=== PATIENT | male | born 1980 | race Hispanic/Latino ===

== ENCOUNTER 2025-01-31 12:02 | Emergency (ER) | payer BC ==
[~2025-01-31] VITALS: Ht 175.3 cm; Wt 82.8 kg
--- NOTE | 2025-01-31 12:17 | EKG ---
[facility] Test Date: 2025-01-31 Test Time: 12:11:52 Pat Name: AUGIE GONZALEZ Department: [facility] Room: Gender: M Verifying Specialist: [id number] : 1980 Requested By: CARRI PINEDO Order Number: [id number] Reading MD: Andi Kruse Measurements Intervals [place] Rate: 82 P: 56 UT: 142 QRS: 40 QRSD: 101 T: -10 QT: 349 QTc: 407 Interpretive Statements Sinus rhythm Probable left ventricular hypertrophy ST elev, probable normal early repol pattern No previous ECG available for comparison Electronically Signed On 01-31-2025 14:44:11 CDT by Andi Kruse Please click the below link to view image of tracing.
[2025-01-31 12:39] LABS: IMMATURE GRANULOCYTE ABSOLUTE 0.07 K/uL (0-1); NUCLEATED RED BLOOD CELLS 0.0 % (0.0-0.19); PLATELET COUNT (AUTO) 331 K/uL (130-400); RED BLOOD CELL COUNT(AUTO) 4.93 MIL/uL (4.50-6.20); RED CELL DISTRIBUTION WIDTH 11.8 % (11.0-15.5); WHITE BLOOD COUNT (AUTO) 6.8 K/uL (4.8-10.8)
[2025-01-31 13:20] LABS: ASPARTATE AMINOTRANSFERASE 46.0 U/L (10-37); CREATINE KINASE, TOTAL 147.0 U/L (21-232); CREATININE 0.9 mg/dL (0.5-1.3); GLOMERULAR FILTR. RATE CALC 109.0 mL/min (>90); GLUCOSE,RANDOM 102.0 mg/dL (70-105); SODIUM SERUM 134.0 mmol/L (136-145); TOTAL PROTEIN, SERUM 8.3 g/dL (6.0-8.3); UREA NITROGEN, BLOOD 8.0 mg/dL (7-18)
--- NOTE | 2025-01-31 13:22 | ERN ---
General Chief Complaint: Abdominal Pain Stated Complaint: ABD PAIN Time Seen by MD: 12:03 Source: patient History of Present Illness Initial Comments IN HIS IS A 44-YEAR-OLD MALE COMING IN COMPLAINING OF ABDOMINAL PAIN. PER PATIENT THE PAIN BEGAN YESTERDAY THIS IS A STATES THAT HE HAS BEEN HAVING THIS PAIN IN THE PAST. HE LOCALIZES THE PAIN TO THE EPIGASTRIC REGION. NO FEVER NO CHILLS NO NAUSEA NO VOMITING Allergies: Coded Allergies: No Known Drug Allergies (Unverified Allergy, Unknown, 01/31/25) Past Medical History Past Medical History: No Pertinent History Past Surgical History: None ROS Dictation CONSTITUTIONAL: NO CHILLS, NO FEVER, NO WEAKNESS, NO DIAPHORESIS, NO MALAISE. HEAD/FACE: NO SIGNS OF TRAUMA. EENT: NO EYE PAIN, NO BLURRED VISION, NO TEARING, NO DOUBLE VISION, NO EAR PAIN, NO EAR DISCHARGE, NO NOSE PAIN, NO NASAL CONGESTION, NO THROAT PAIN, NO THROAT SWELLING, NO MOUTH PAIN. RESPIRATORY: NO COUGH, NO ORTHOPNEA, NO SOB, NO STRIDOR, NO WHEEZING. CARDIOVASCULAR: NO CHEST PAIN, NO EDEMA, NO PALPITATIONS, NO SYNCOPE. GASTROINTESTINAL/ABDOMINAL: ABDOMINAL PAIN, NO CONSTIPATION, NO DIARRHEA, NO NAUSEA, NO VOMITING. GENITOURINARY: NO ABNORMAL DISCHARGE, NO DYSURIA, NO FREQUENT URINATION, NO HEMATURIA. NO COMPLAINTS OF PAIN IN THE GENITALS. MUSCULOSKELETAL: NO BACK PAIN, NO GOUT, NO JOINT PAIN, NO JOINT SWELLING, NO MUSCLE PAIN, NO MUSCLE STIFFNESS, NO NECK PAIN. INTEGUMENTARY: NO CHANGE IN COLOR, NO CHANGE IN HAIR/NAILS, NO DRYNESS, NO LESION, NO LUMPS, NO RASH. NEUROLOGICAL/PSYCH: NO ANXIETY, NOT DEPRESSED, NO EMOTIONAL PROBLEM, NO HEADACHE, NO NUMBNESS, NO PRE-EXISTING DEFICIT, NO HISTORY OF SEIZURES, NO TREMORS, NO WEAKNESS. HEMATOLOGIC/LYMPHATIC: NOT ANEMIC, NO HISTORY OF BLOOD CLOTS, NO APPARENT BLEEDING, NO BRUISING, GLANDS NOT SWOLLEN. ALL SYSTEMS NEGATIVE, EXCEPT NOTED. Physical Exam Physical Exam Dictation VITAL SIGNS: REVIEWED. GENERAL APPEARANCE: ALERT, ORIENTED X3, NO ACUTE DISTRESS, OBESE. HEAD AND FACE: NON-TRAUMATIC. EYES: PERRL, PINK CONJUNCTIVAS, EYELID NO TRAUMA, ANTERIOR CHAMBER CLEAR. EARS: PINNAS INTACT AND NO SIGNS OF TRAUMA OR ERYTHEMA. EAR CANALS CLEAR AND NO DISCHARGE. TMS NO ERYTHEMA. NOSE: NO DISCHARGE, NO BLEEDING. OROPHARYNX: MOUTH NORMAL, TEETH NO CARIES, TONGUE PINK. PHARYNX CLEAR, NO ERYTHEMA. TONSILS NO EXUDATES, NO ABSCESSES NOTED. MUCOUS MEMBRANE MOIST. NECK: SUPPLE, NON-TENDER, NO THYROMEGALY, NO MASSES, NO JVD, NO BRUITS. BREAST: DEFERRED. CHEST: NO TENDERNESS, NO CREPITUS, NO PARADOXICAL MOVEMENT, NO RETRACTIONS. LUNGS: CLEAR, WELL-VENTILATED, SYMMETRIC, NO RALES, NO WHEEZING, NO RHONCHI, NO STRIDOR, GOOD BREATH SOUNDS BILATERALLY. HEART: REGULAR RATE, REGULAR RHYTHM, NO MURMUR, NO GALLOPS. VASCULAR: NO PERIPHERAL EDEMA. ABDOMEN: SOFT, POSITIVE BOWEL SOUNDS, NONDISTENDED, NO GUARDING, EPIGASTRIC TENDERNESS ON PALPATION, NO REBOUND, NO MASSES NO HEPATOMEGALY, NO SPLENOMEGALY, NO COOL'S SIGN, NO HERNIAS. RECTAL: DEFERRED. GENITAL: DEFERRED. NEUROLOGICAL: NORMAL SPEECH, GROSS MOTOR FUNCTION INTACT, GROSS SENSORY FUNCTION INTACT. MUSCULOSKELETAL: NECK NONTENDER, FULL RANGE OF MOTION, BACK NONTENDER, FULL RANGE OF MOTION. EXTREMITIES: NONTENDER, FULL RANGE OF MOTION. SKIN: COLOR PINK, DRY, NO TURGOR, NO RASH, NO LACERATIONS, NO ABRASIONS, NO CONTUSIONS. LYMPHATICS: DEFERRED. Results Laboratory and Microbiology Lab and Micro Result Laboratory Tests Test 01/31/25 12:23 White Blood Count 6.8 K/uL (4.8-10.8) Red Blood Count 4.93 MIL/uL (4.50-6.20) Hemoglobin 15.3 g/dL (14.0-18.0) Hematocrit 44.5 % (42-54) Mean Corpuscular Volume 90.3 fL (79-99) Mean Corpuscular Hemoglobin 31.0 pg (27.0-33.0) Mean Corpuscular Hemoglobin Concent 34.4 g/dL (32.0-36.0) Red Cell Distribution Width 11.8 % (11.0-15.5) Platelet Count 331 K/uL (130-400) Mean Platelet Volume 9.4 fL (7.5-10.5) Immature Granulocyte % (Auto) 1.0 % (0-1) Neutrophils (%) (Auto) 66.5 % (40.0-77.0) Lymphocytes (%) (Auto) 22.0 % (21.0-51.0) Monocytes (%) (Auto) 7.4 % (3.0-13.0) Eosinophils (%) (Auto) 2.2 % (0.0-8.0) Basophils (%) (Auto) 0.9 % (0.0-5.0) Neutrophils # (Auto) 4.5 K/uL (1.8-7.7) Lymphocytes # (Auto) 1.5 K/uL (1.0-4.8) Monocytes # (Auto) 0.5 K/uL (0.1-1.0) Eosinophils # (Auto) 0.15 K/uL (0.00-0.70) Basophils # (Auto) 0.06 K/uL (0.00-0.20) Absolute Immature Granulocyte (auto 0.07 K/uL (0-1) Nucleated Red Blood Cells 0.0 % (0.0-0.19) Sodium Level 134 mmol/L (136-145) L Potassium Level 3.5 mmol/L (3.5-5.1) Chloride Level 99 mmol/L (101-111) L Carbon Dioxide Level 27 mmol/L (21-32) Blood Urea Nitrogen 8 mg/dL (7-18) Creatinine 0.9 mg/dL (0.5-1.3) Glomerular Filtration Rate Calc 109 mL/min (>90) Random Glucose 102 mg/dL (70-105) Total Calcium 8.7 mg/dL (8.5-10.1) Total Bilirubin 0.6 mg/dL (0.2-1.0) Aspartate Amino Transf (AST/SGOT) 46 U/L (10-37) H Alanine Aminotransferase (ALT/SGPT) 83 U/L (12-78) H Alkaline Phosphatase 99 U/L (50-136) Total Creatine Kinase 147 U/L (21-232) Troponin I High Sensitivity 6 ng/L (4-75) Total Protein 8.3 g/dL (6.0-8.3) Albumin 3.8 g/dL (3.5-5.0) Lipase 25 U/L (16-77) Labs Reviewed?: Yes EKG/XRAY/US/CT/MRI EKG Comment 01/31/2025 TIME 12:11 P.M. VENTRICULAR RATE 82 SINUS RHYTHM [place] [address] WAVE ELEVATION OR DEPRESSION X-RAY Comment [address] [place] [address] IMAGING REPORT Signed PATIENT: AUGIE GONZALEZ MR#: [id number] : 1980 SEX: M AGE: 44 LOCATION: [facility] ORDER 1210 STATUS: REG ER REPORT#: [id number] SERVICE 1207 REASON: CP ORDERING PHYSICIAN: CARRI PINEDO MD PROCEDURE: CXR1VW - CHEST 1VW EXAM: CR Chest, 1 View. CLINICAL HISTORY: CP COMPARISON: None provided. FINDINGS: LUNGS: The lungs show no infiltrate or other acute finding. PLEURAL SPACES: No pleural effusion or pneumothorax. MEDIASTINUM: The cardiomediastinal silhouette is within normal limits. BONES: No acute osseous abnormality. IMPRESSION: No acute cardiopulmonary pathology is evident. /[place] DICTATED BY: RAHEEM DICKEY Jr., MD DATE: 01/31/251609 ELECTRONICALLY SIGNED BY: RAHEEM DICKEY Jr., MD DATE: 01/31/251609 [facility] MDM: DIFFERENTIAL DIAGNOSIS: GASTRITIS, NSTEMI, STEMI, RATIONALE: TESTS CONSIDERED AND ORDERED SECONDARY TO SHARED DECISION MAKING INCLUDE: PREVIOUS OUTSIDE RECORDS REVIEWED: OLD ER VISITS. RISK OF COMPLICATION AND/OR MORBIDITY OR MORTALITY OF PATIENT MANAGEMENT: NONE MEDICATIONS-PER MEDICATION RECONCILIATION NEED FOR HOSPITALIZATION: PATIENT DOES NOT MEET CRITERIA FOR HOSPITALIZATION. NEED FOR EMERGENCY MAJOR/MINOR SURGERY: NO PATIENT IS A 44-YEAR-OLD MALE COMING IN COMPLAINING OF EPIGASTRIC DISCOMFORT. PATIENT DOES ATTRIBUTED THIS FEELING AFTER DRINKING BEER AND EATING HOT CHIPS AND [place] BOMBERS. PER PATIENT THE SYMPTOMS BEGAN SHORTLY AFTER THAT. PATIENT WAS EVALUATED WITH A CARDIAC WORKUP PATIENT RECEIVED A GI COCKTAIL STATES HE FEELS MUCH BETTER. WE WILL BE DISCHARGED IN STABLE CONDITION PATIENT REFUSED OTHER LABORATORY WORKUP AND IV FLUIDS. ED Course Orders Procedure Category Date Status Time Cbc With Differential LAB 01/31/25 Complete 12:07 Chest 1vw RAD 01/31/25 Resulted 12:07 12 Lead Ekg Tracing- EKG 01/31/25 Resulted Technical 12:07 0.9%Nacl 1000ml (Ns PHA 01/31/25 Complete 1000ml) 12:30 Creatine Kinase, Total LAB 01/31/25 Complete 12:07 Troponin I High LAB 01/31/25 Complete Sensitivity 12:07 Urinalysis Profile LAB 01/31/25 Logged 12:07 Lipase LAB 01/31/25 Complete 12:07 Comprehensive LAB 01/31/25 Complete Metabolic Panel 12:07 Pantoprazole 40mg Inj PHA 01/31/25 Complete (Protonix 40mg Inj 12:30 Ondansetron 4mg Inj PHA 01/31/25 Complete (Zofran 4mg Inj) 12:30 Lidocaine Hcl 2% PHA 01/31/25 Complete Viscous (Lidocaine Hcl 12:30 Mag/Alum/Simeth 30ml PHA 01/31/25 Complete (Maalox Plus 30ml) 12:30 Drug Screen Urine LAB 01/31/25 Logged 12:07 Current Medications Medications (Trade) Dose Ordered Sig/Yahaiar Route PRN Reason Start Time Stop Time Status Last Admin Dose Admin Al Hydroxide/Mg Hydroxide (MAALox PLUS 30ML) 30 ml ONCE ONCE PO 01/31/25 12:30 01/31/25 13:02 DC 01/31/25 15:10 Lidocaine HCl (Lidocaine HCl 2% Viscous) 10 ml ONCE ONCE PO 01/31/25 12:30 01/31/25 13:02 DC 01/31/25 15:11 Ondansetron HCl (zoFRAN 4MG INJ) 4 mg ONCE ONCE IVP 01/31/25 12:30 01/31/25 13:02 DC 01/31/25 15:11 Pantoprazole Sodium (PROTonix 40MG INJ) 40 mg ONCE ONCE IVP 01/31/25 12:30 01/31/25 13:02 DC 01/31/25 15:10 Sodium Chloride 1,000 ml @ 0 mls/hr ONCE ONCE IV 01/31/25 12:30 01/31/25 13:02 DC 01/31/25 15:10 Vital Signs Date Time Temp Pulse Resp B/P (MAP) Pulse Ox O2 Delivery O2 Flow Rate FiO2 01/31/25 12:05 97.9 98 18 146/89 99 Room Air 0 DX & DISP Disposition: Discharge Departure Impression: Primary Impression: Gastritis Additional Impression: GERD (gastroesophageal reflux disease) Condition: Stable Scripts Pantoprazole Sodium (Protonix) 40 Mg Ectab 1 TAB PO DAILY for 30 Days, #30 TAB 0 Refills Prov: CARRI PINEDO MD 01/31/25 Additional Instructions: YOU HAVE BEEN REVIEWED IN THE EMERGENCY DEPARTMENT AT [facility] AFTER PRESENTING WITH CHEST PAIN. AFTER CONSIDERING YOUR HISTORY, YOUR RISK FACTORS, YOUR EKG AND YOUR BLOOD TEST TROPONINS, HAVE BEEN FOUND TO BE AT VERY LOW RISK LESS THAN (1 IN 100) OF HAVING A MAJOR ADVERSE CARDIAC EVENT (LIKE HEART ATTACK) IN THE NEAR FUTURE. IN THE " LOW RISK" GROUP, THE RISKS OF DOING FURTHER TESTS AND TREATMENT THE INPATIENT OUTWEIGHS THE BENEFITS. IN MANY PATIENTS IN THE LOW RISK GROUP FOR THE TEST OF ANY SORT OR UNNECESSARY, HOWEVER HE SHOULD DISCUSS THIS FURTHER WITH HIS GENERAL PRACTITIONER WHO WILL UNDERSTAND THE MEDICAL AND PERSONAL BACKGROUNDS BETTER. BECAUSE WE HAVE NEVER DECLARED YOU" NO RISK" WE WOULD SUGGEST. 1 RETURNING FOR MEDICAL REVIEW IF YOU HAVE FURTHER EPISODES OF CHEST PAIN/ARM PA IN OR OTHER CONCERNING SYMPTOMS LIKE DIZZINESS, COLLAPSE, PALPITATIONS OR SHORTNESS OF BREATH. 2. FOLLOWING UP WITH YOUR LOCAL DOCTOR WHO WILL CONSIDER THE NEED FOR FURTHER TESTING AND WILL ALSO ENSURE THAT ANY MODIFIABLE RISK FACTORS YOU MAY HAVE FOR HEART DISEASE ARE OPTIMALLY MANAGED. PATIENT WILL BE DISCHARGED IN STABLE CONDITION AT THE MOMENT DISCHARGE PATIENT STATES , NO CHEST PAIN Referrals: SELF,REFERRAL (PCP) DIANA CALDERON MD Time of Disposition: 15:34 CARRI PINEDO MD Jan 31, 2025 13:22
--- NOTE | 2025-01-31 14:42 | NUR ---
PT MOVED INTO [facility] AT THIS TIME
--- NOTE | 2025-01-31 14:45 | NUR ---
PT REFUSED IV AND IV MEDICATIONS STATES NO PAIN AT THIS TIME WILL TAKE PO MEDICATIONS NOTIFIED ER PHYSICIAN
[2025-01-31] MEDS: 0.9%NACL 1000ML 1,000 ML IV ONE (15:10)
[2025-01-31] MEDS: MAG/ALUM/SIMETH 30 ML UDCUP PO ONE (15:10)
[2025-01-31] MEDS: LIDOCAINE HCL 2% VISCOUS 15 ML UDCUP PO ONE (15:11)
--- NOTE | 2025-01-31 15:11 | HMCIMG ---
EXAM: CR Chest, 1 View. CLINICAL HISTORY: CP COMPARISON: None provided. FINDINGS: LUNGS: The lungs show no infiltrate or other acute finding. PLEURAL SPACES: No pleural effusion or pneumothorax. MEDIASTINUM: The cardiomediastinal silhouette is within normal limits. BONES: No acute osseous abnormality. IMPRESSION: No acute cardiopulmonary pathology is evident. /[place]
[2025-01-31] MEDS ORDERED: PANT40TA55 PO (15:35)
[2025-01-31 16:11] VITALS: BP 141/87; PULSE 88; RESP 18; TEMP 97.9; O2SAT 97
== END 2025-01-31 16:15 | disposition home or self-care (01) ==
LOC: EDH 12:02
DX: K29.70 Gastritis, unspecified, without bleeding (principal); K21.9 Gastro-esophageal reflux disease without esophagitis
CPT/HCPCS: 36415; 71045; 80053; 82550; 83690; 84484; 85025; 93005; 99284; J2405; J2470; J7030